=== PATIENT | female | born 1985 | race African-American/Black ===

== ENCOUNTER 2019-05-10 10:46 | Emergency (ER) | payer SELFPAY ==
[2019-05-10] MEDS ORDERED: Lidocaine 1% w/Epinephrine 1:100K 30 ML VIAL ONE (11:48)
== END 2019-05-10 12:33 | disposition home or self-care (01) ==
LOC: NAV ERS 10:46
DX: L02.214 Cutaneous abscess of groin (principal); E11.9 Type 2 diabetes mellitus without complications
CPT/HCPCS: 10060; J2001